=== PATIENT | male | born 1990 | race Caucasian/White ===

== ENCOUNTER 2022-05-23 14:46 | Emergency (ER) | payer OTHER, SELFPAY ==
[2022-05-23 14:51] VITALS: BP 144/90; PULSE 84; RESP 16; TEMP 36.8; O2SAT 96; BMI 34.5
--- NOTE | 2022-05-23 15:43 | CRLHL7_ITS ---
For Patients: As a result of the Cures Act, medical imaging exams and procedure reports are released immediately into your electronic medical record. You may view this report before your referring provider. If you have questions, please contact your health care provider. INDICATION: Chest pain. TECHNIQUE: Chest 2 views. COMPARISON: None. FINDINGS: Cardiovascular and mediastinum: Cardiomediastinal silhouette is within normal limits Lungs and pleural spaces: Lungs are clear. No sign of pleural effusion. No pneumothorax. Bones and soft tissues: No significant findings. IMPRESSION: No acute or significant findings. Dictated by Rain Strange MD @ 05/23/2022 5:09:38 PM (Electronically Signed)
[2022-05-23 16:00] VITALS: BP 129/89; PULSE 79; RESP 14; O2SAT 96
--- NOTE | 2022-05-23 16:07 | ED_ITS ---
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 This occurred while he was playing with his child. Something that he has always done, the chest pain went away, but he has felt very wiped out, since then he has felt often on fatigue, to the point where he thinks he might even need to take asleep, he feels foggy at time periods, today came back after feeling well in the morning, and he decided to come in and get seen. He denies any further episodes of chest pain any shortness of breath or any feeling he might pass out, he has not really had a cough runny nose fevers chills or other symptoms. Denies any leg swelling, no personal history of coronary artery disease no history of any pulmonary emboli. Only medication he takes his omeprazole and some Claritin for allergies. Admits to me that maybe this is anxiety, now that is occurring. complaint: chest pain Onset (ago): day(s) Onset: during exertion Pain location: substernal and left chest Pain radiation: left arm Severity: moderate Quality: heaviness Relieving factors: nothing Exacerbating factors: nothing Treatment prior to arrival: none Related Data Home Medications Medication Instructions Recorded Confirmed loratadine-pseudoephedrine ER 10 1 tab PO DAILY 05/23/22 05/23/22 mg-240 mg tablet,extended [id number] (Claritin-D 24 Hour) omeprazole 20 mg capsule,delayed 20 mg PO DAILY 05/23/22 05/23/22 release Allergies Allergy/AdvReac Type Severity Reaction Status Date / Time No Known Drug Allergies Allergy Verified 05/23/22 15:01 Review of Systems Status of ROS Reports: 10 or more systems reviewed and unremarkable except as noted in History and below [facility] Social History Smoking Status: Never smoker Do you use any of these nicotine containing products: None Second hand tobacco smoke exposure: No How often do you have a drink containing alcohol: monthly or less How many standard drinks containing alcohol do you have on a typical day: 1 or 2 How often do you have six or more drinks on one occasion: Never AUDIT-C Alcohol total score: 1 Non-prescribed substance use: denies use service: No Exam Narrative Exam Narrative: Patient is seen in room 8 in no apparent distress, he is in normal sinus rhythm on the monitor. His pupils are equal round reactive to light there is no scleral icterus redness TMs bilaterally are normal, oropharynx is normal, JVP is flat carotid upstrokes are equal, chest is clear bilaterally with no wheezing crackles noted, easy respirations. Heart sounds S1-S2 were normal there is no S3-S4 clicks murmurs or gallops noted. There is no tenderness to palpation over his chest. His abdomen is soft and obese there is no guarding no past splenomegaly skin reveals no petechiae rashes the moves all extremities independently and well. No pitting edema, and no positive Homans sign. Const Vital Signs, click to edit/add: Vital Signs - 24 hr 05/23/22 14:51 05/23/22 18:00 05/23/22 16:00 Temperature 98.3 F Pulse Rate [Right Pulse Oximeter] 84 71 79 Respiratory Rate 16 16 14 Blood Pressure [Right Upper Arm] 144/90 H 134/90 H 129/89 Pulse Oximetry 96 96 96 Oxygen Delivery Method Room Air Room Air Room Air Documenting provider has reviewed patient's vital signs: yes Course Course Hospital Course: During the evaluation of this patient I considered multiple differential diagnosis is. The life-threatening differential diagnosis include coronary disease/[place], pulmonary embolism, pneumothorax, pneumonia, and aortic dissection. Other differential diagnosis included but were not limited to pericarditis, myocarditis, chest wall pain, GERD, esophageal rupture, rib fracture contusion, pleurisy, as well as other etiologies. Reevaluation(s) Reevaluation #1: Patient remained pain-free, I reviewed his laboratory tests which were all normal including a normal D-dimer normal troponin. I did offer to repeat this in 2 hours but after discussion in his heart score being low he declined this. I think follow-up with his primary care physician would be important, consideration of a stress test, and also management of stressed does echo could play into this also. He is very comfortable this, and discharged ambulatory. To return if increasing chest pain shortness of breath. Time: 18:05 Vital Signs Vital signs: Initial Vital Signs Temperature 98.3 F 05/23/22 14:51 Temperature Source Temporal Artery Scan 05/23/22 14:51 Pulse Rate 84 05/23/22 14:51 Respiratory Rate 16 05/23/22 14:51 Blood Pressure 144/90 H 05/23/22 14:51 Blood Pressure Mean 108 05/23/22 14:51 Blood Pressure Position Sitting 05/23/22 14:51 Pulse Oximetry 96 05/23/22 14:51 Oxygen Delivery Method 05/23/22 14:51 Vital Signs Temperature 98.3 F 05/23/22 14:51 Pulse Rate 84 05/23/22 14:51 Respiratory Rate 16 05/23/22 14:51 Blood Pressure 144/90 H 05/23/22 14:51 Pulse Oximetry 96 05/23/22 14:51 Oxygen Delivery Method 05/23/22 14:51 Temperature 98.3 F 05/23/22 14:51 Pulse Rate 71 05/23/22 18:00 Respiratory Rate 16 05/23/22 18:00 Blood Pressure 134/90 H 05/23/22 18:00 Pulse Oximetry 96 05/23/22 18:00 Oxygen Delivery Method 05/23/22 18:00 MDM - Chest Pain MDM Narrative Medical decision making narrative: During the evaluation of this patient I considered multiple differential diagnosis is. The life-threatening differential diagnosis include coronary disease/[place], pulmonary embolism, pneumothorax, pneumonia, and aortic dissection. Other differential diagnosis included but were not limited to pericarditis, myocarditis, chest wall pain, GERD, esophageal rupture, rib fracture contusion, pleurisy, as well as other etiologies. Medical Records Data Attestation: I reviewed the patient's medical records. Lab Data Attestation: I reviewed the patient's lab results. Labs: Lab Results 05/23/22 05/23/22 05/23/22 Range/Units 15:43 16:05 16:05 WBC 7.69 (4.50-11.00) K/uL RBC 5.20 (4.30-5.90) m/uL Hgb 15.8 (13.5-17.5) gm/dL Hct 44.6 (37.0-53.0) % MCV 86 (80-100) fL MCH 30 (26-34) pg MCHC 35 (32-36) gm/dL RDW Coeff of Carisa 12.1 (11.5-15.5) % Plt Count 219 (140-440) K/uL Neut % (Auto) 70.9 (42.0-72.0) % Lymph % (Auto) 17.9 L (20-44) % [place] % (Auto) 7.3 (0.0-11.0) % Eos % (Auto) 3.1 (0.0-7.0) % Baso % (Auto) 0.5 (0.0-3.0) % Neut # (Auto) 5.45 (1.7-7.0) K/uL Lymph # (Auto) 1.40 (0.90-2.90) K/uL [place] # (Auto) 0.60 (0.00-0.90) K/UL Eos # (Auto) 0.24 (0.00-0.50) K/uL Baso # (Auto) 0.04 (0.00-0.30) K/uL Abs Immat Gran (auto) 0.02 (0.00-0.30) K/uL INR 0.99 (0.91-1.10) APTT 25 (23-33) Seconds D-Dimer Quant (PE/DVT) 0.33 (0.00-0.50) ug/ml Sodium (135-149) mmol/L Potassium (3.6-5.1) mmol/L Chloride (96-114) mmol/L Carbon Dioxide (20-32) mmol/L BUN (5-24) mg/dL Creatinine (0.5-1.5) mg/dL Estimated Creat Clear Estimated GFR ml/min Glucose (60-115) mg/dL Calcium (8.4-10.6) mg/dL Total Bilirubin (0.1-1.5) mg/dL Direct Bilirubin (0.0-0.5) mg/dL AST (12-35) U/L ALT (4-50) U/L Alkaline Phosphatase (40-150) U/L NT-Pro-B Natriuret Pep (0-125) PG/mL Total Protein (6.0-8.3) g/dL Albumin (3.3-5.0) g/dL SARS-CoV-2 (PCR) Negative SARS-CoV-2 (Negative) Influenza Type A (PCR) Negative PCR FLU A (Negative) Influenza Type B (PCR) Negative PCR FLU B (Negative) RSV (PCR) Negative PCR RSV (Negative) POC Troponin I (0.01-0.04) ng/ml 05/23/22 05/23/22 Range/Units 16:05 16:05 WBC (4.50-11.00) K/uL RBC (4.30-5.90) m/uL Hgb (13.5-17.5) gm/dL Hct (37.0-53.0) % MCV (80-100) fL MCH (26-34) pg MCHC (32-36) gm/dL RDW Coeff of Carisa (11.5-15.5) % Plt Count (140-440) K/uL Neut % (Auto) (42.0-72.0) % Lymph % (Auto) (20-44) % [place] % (Auto) (0.0-11.0) % Eos % (Auto) (0.0-7.0) % Baso % (Auto) (0.0-3.0) % Neut # (Auto) (1.7-7.0) K/uL Lymph # (Auto) (0.90-2.90) K/uL [place] # (Auto) (0.00-0.90) K/UL Eos # (Auto) (0.00-0.50) K/uL Baso # (Auto) (0.00-0.30) K/uL Abs Immat Gran (auto) (0.00-0.30) K/uL INR (0.91-1.10) APTT (23-33) Seconds D-Dimer Quant (PE/DVT) (0.00-0.50) ug/ml Sodium 137 (135-149) mmol/L Potassium 4.1 (3.6-5.1) mmol/L Chloride 104 (96-114) mmol/L Carbon Dioxide 22 (20-32) mmol/L BUN 12 (5-24) mg/dL Creatinine 0.8 (0.5-1.5) mg/dL Estimated Creat Clear 123.94 Estimated GFR 121 ml/min Glucose 100 (60-115) mg/dL Calcium 9.4 (8.4-10.6) mg/dL Total Bilirubin 0.5 (0.1-1.5) mg/dL Direct Bilirubin 0.1 (0.0-0.5) mg/dL AST 32 (12-35) U/L ALT 31 (4-50) U/L Alkaline Phosphatase 62 (40-150) U/L NT-Pro-B Natriuret Pep 26 (0-125) PG/mL Total Protein 7.9 (6.0-8.3) g/dL Albumin 5.0 (3.3-5.0) g/dL SARS-CoV-2 (PCR) (Negative) Influenza Type A (PCR) (Negative) Influenza Type B (PCR) (Negative) RSV (PCR) (Negative) POC Troponin I 0.01 (0.01-0.04) ng/ml Imaging Data Chest x-ray: My impression: Chest x-ray my review is normal Radiologist's impression: atient: [facility] Facility:?[facility] Patient ID:?[id number] Site Patient ID:?[id number]. Site :?[id number] Study:?XRay Chest 2 VIEW-05/23/2022 4:54:35 PM Ordering Physician:Olivia Hoskins Final Report: INDICATION: Chest pain. TECHNIQUE: Chest 2 views. COMPARISON: None. FINDINGS: Cardiovascular and mediastinum: Cardiomediastinal silhouette is within normal limits Lungs and pleural spaces: Lungs are clear. No sign of pleural effusion. No pneumothorax. Bones and soft tissues: No significant findings. IMPRESSION: No acute or significant findings. Dictated by Rain Strange MD @ 05/23/2022 5:09:38 PM (Electronic Signature) ECG Data Attestation: I personally reviewed and interpreted this ECG as follows: Prior ECG tracings: not available for review Interpretation: EKG shows normal sinus rhythm, incomplete right bundle-branch block, otherwise normal EKG. Discharge Plan Discharge Clinical Impression: Chest pain Patient Disposition: Home, Self-Care Condition: Stable Instructions: Chest Pain (DC) Additional Instructions: Home, rest, follow-up with primary care suggested, and consideration of further testing or stress testing. I am reassured by all your to labs being normal here, this is all very good news, increasing chest pain shortness of breath or other findings he should come back and be seen. Prescriptions: No Action Claritin-D 24 Hour 10-240 mg tablet extended release 24 hr 1 tab PO DAILY omeprazole 20 mg capsule,delayed release(DR/EC) 20 mg PO DAILY Stand Alone Forms: [employer] Info Instructions
[2022-05-23 16:17] LABS: Basophils Absolute Auto 0.04 K/uL (0.00-0.30); Basophils Percent Auto 0.5 % (0.0-3.0); Eosinophils Absolute Auto 0.24 K/uL (0.00-0.50); Eosinophils Percent Auto 3.1 % (0.0-7.0); Hematocrit 44.6 % (37.0-53.0); Hemoglobin* 15.8 gm/dL (13.5-17.5); Immature Granulocytes Abs Auto 0.02 K/uL (0.00-0.30); Lymphocytes Percent Auto 17.9 % (20-44); Mean Corpuscular HGB Conc 35 gm/dL (32-36); Mean Corpuscular Hemoglobin 30 pg (26-34); Mean Corpuscular Volume 86 fL (80-100); Monocytes Percent Auto 7.3 % (0.0-11.0); Neutrophils Absolute Auto 5.45 K/uL (1.7-7.0); Neutrophils Percent Auto 70.9 % (42.0-72.0); Platelet Count* 219 K/uL (140-440); RDW Coefficient of Variation % 12.1 % (11.5-15.5); White Blood Count* 7.69 K/uL (4.50-11.00)
[2022-05-23] MEDS: ASPIRIN 81 MG TAB.CHEW 324 MG PO (16:28)
[2022-05-23 16:30] LABS: Troponin, Point-of-Care* 0.01 ng/ml (0.01-0.04)
[2022-05-23 16:34] LABS: INR 0.99 (0.91-1.10); Prothrombin Time 13.5 Seconds
[2022-05-23 16:35] LABS: Partial Thromboplastin Time* 25 Seconds (23-33)
[2022-05-23 16:36] LABS: Chloride* 104 mmol/L (96-114); Potassium* 4.1 mmol/L (3.6-5.1); Sodium* 137 mmol/L (135-149)
[2022-05-23 16:37] LABS: D Dimer Quantitative* 0.33 ug/ml (0.00-0.50)
[2022-05-23 16:38] LABS: Bilirubin Direct* 0.1 mg/dL (0.0-0.5); Bilirubin Total* 0.5 mg/dL (0.1-1.5); Carbon Dioxide* 22 mmol/L (20-32); Creatinine* 0.8 mg/dL (0.5-1.5); Est. Creatinine Clearance* 123.94; Estimated Glomerular Filt Rate 121 ml/min
[2022-05-23 16:39] LABS: Alanine Aminotransferase* 31 U/L (4-50); Alkaline Phosphatase* 62 U/L (40-150); Aspartate Amino Transferase* 32 U/L (12-35); Blood Urea Nitrogen* 12 mg/dL (5-24); Calcium* 9.4 mg/dL (8.4-10.6); Glucose* 100 mg/dL (60-115); Total Protein* 7.9 g/dL (6.0-8.3)
[2022-05-23 16:43] LABS: Slide Review Reflex No
[2022-05-23 16:47] LABS: NT Pro B Type NatriureticPept* 26 PG/mL (0-125)
[2022-05-23 17:00] LABS: PCR FLU A Negative PCR FLU A (Negative); PCR FLU B Negative PCR FLU B (Negative); PCR RSV Negative PCR RSV (Negative)
[2022-05-23 17:01] LABS: SARS PCR* Negative SARS-CoV-2 (Negative)
[2022-05-23 18:00] VITALS: BP 134/90; PULSE 71; RESP 16; O2SAT 96
== END 2022-05-23 18:04 | disposition home or self-care (01) ==
PROVIDERS: Emergency Provider Family Medicine
DX: R07.9 Chest pain, unspecified (principal); Z20.822 Contact with and (suspected) exposure to COVID-19
CPT/HCPCS: 36415; 71046; 80048; 80076; 83880; 85025; 85379; 85610; 85730; 87502; 87634; 87635; 93005; 99284; 99285; A9270